=== PATIENT | female | born 1985 | race Caucasian/White ===

== ENCOUNTER 2018-07-27 00:14 | Emergency (ER) | payer OTHER ==
[2018-07-27 00:42] LABS: ADD MAN DIFF? NO
[2018-07-27] MEDS: predniSONE 20 MG TAB PO (00:42)
[2018-07-27 00:44] LABS: WHITE BLOOD COUNT 13.2 10^3/ul (4.8-10.8)
[2018-07-27 00:44] LABS: BASOPHIL # 0.1 10^3/ul (0.0-0.1); BASOPHILS % 0.5 % (0.0-2.0); EOSINOPHILS # 0.4 10^3/ul (0.0-0.5); EOSINOPHILS % 2.9 % (0.0-7.0); HEMATOCRIT 41.5 % (37.0-47.0); HEMOGLOBIN 13.7 g/dl (12.0-16.0); LYMPHOCYTES # 2.7 10^3/ul (0.8-2.9); LYMPHOCYTES % 20.8 % (15.0-51.0); MEAN CORPUSCULAR HEMOGLOBIN 29.1 pg (29.0-33.0); MEAN CORPUSCULAR VOLUME 88.1 fl (82.0-101.0); MEAN PLATELET VOLUME 9.6 fl (7.4-10.4); MONOCYTE # 0.8 10^3/ul (0.3-0.9); MONOCYTES % 6.3 % (0.0-11.0); NEUTROPHIL # 9.1 10^3/ul (1.6-7.5); PLATELET COUNT 312 10^3/UL (140-415); RED BLOOD COUNT 4.71 10^6/ul (4.20-5.40); RED CELL DISTRIBUTION WIDTH 13.1 % (11.5-14.5)
[2018-07-27] MEDS: HYDROCODONE/APAP (5/325) TAB PO (00:53)
[2018-07-27 01:01] LABS: ANION GAP 16 (8-16); BLOOD UREA NITROGEN 10 mg/dl (7-20); CALCIUM 9.4 mg/dl (8.4-10.2); CARBON DIOXIDE 27 mmol/L (21-31); CHLORIDE 99 mmol/L (97-110); CREATININE 0.65 mg/dl (0.44-1.00); GLUCOSE 263 mg/dl (70-220); POTASSIUM 4.1 mmol/L (3.5-5.1); SODIUM 138 mmol/L (135-144)
[2018-07-27] MEDS: IPRATROPIUM (NEB) 0.5 MG/2.5 ML AMP HHN (01:04)
[2018-07-27] MEDS: ALBUTEROL 0.083% (NEB) 2.5 MG/3 ML AMP HHN (01:04)
[2018-07-27 01:12] LABS: B-TYPE NATRIURETIC PEPTIDE 25 PG/ML (0-125); TROPONIN-I < 0.012 ng/ml (0.000-0.120)
[2018-07-27] MEDS: SOD CHLORIDE 0.9% 1,000 ML IV (01:15)
[2018-07-27 01:17] LABS: ALANINE AMINOTRANSFERASE 18 IU/L (13-69); ALBUMIN 3.3 g/dl (3.3-4.9); ALKALINE PHOSPHATASE 115 IU/L (42-121); ASPARTATE AMINO TRANSFERASE 12 IU/L (15-46); LIPASE 164 U/L (23-300); TOTAL PROTEIN 6.9 g/dl (6.1-8.1)
[2018-07-27 02:39] LABS: URINE BLOOD (Dip) POC Negative (NEGATIVE); URINE KETONES (Dip) POC Trace (NEGATIVE); URINE LEUKOCYTE EST (Dip) POC Trace (NEGATIVE); URINE NITRITE (Dip) POC Negative (NEGATIVE); URINE TOTAL PROTEIN POC Trace (NEGATIVE)
[2018-07-27] MEDS: KETOROLAC 30 MG INJ IV (03:17)
== END 2018-07-27 04:35 | disposition home or self-care (01) ==
LOC: E/R 00:14
DX: J45.901 Unspecified asthma with (acute) exacerbation (principal); R10.9 Unspecified abdominal pain
CPT/HCPCS: 36415; 71045; 74019; 80048; 80076; 81003; 81025; 82962; 83690; 83880; 84484; 85025; 93005; 94644; 96374; 99285-25

== ENCOUNTER 2019-04-15 13:00 | Emergency (ER) | payer OTHER | END 2019-04-16 12:53 | disposition home or self-care (01) | LOC: E/R 04-16 12:53 | DX: L50.9 Urticaria, unspecified (principal); I10 Essential (primary) hypertension; J45.909 Unspecified asthma, uncomplicated; E11.9 Type 2 diabetes mellitus without complications | CPT/HCPCS: 99283; Z7502 ==

== ENCOUNTER 2019-05-11 13:29 | Emergency (ER) | payer OTHER ==
[2019-05-11 14:06] LABS: URINE BLOOD (Dip) POC Negative (NEGATIVE); URINE GLUCOSE (Dip) POC Negative (NEGATIVE); URINE KETONES (Dip) POC Negative (NEGATIVE); URINE LEUKOCYTE EST (Dip) POC 1+ (NEGATIVE); URINE NITRITE (Dip) POC Negative (NEGATIVE); URINE TOTAL PROTEIN POC Negative (NEGATIVE)
[2019-05-11] MEDS: AZITHROMYCIN 500 MG TAB PO (14:07)
[2019-05-11] MEDS: CEFTRIAXONE 250 MG INJ IM (14:07)
[2019-05-11] MEDS: LIDOCAINE 1% (MDV) 20 ML INJ SC (14:11)
[2019-05-11 14:43] LABS: ADD UMIC YES; UR ASCORBIC ACID NEGATIVE (NEGATIVE); UR BACTERIA FEW /HPF (NONE SEEN); UR BILIRUBIN (Dip) NEGATIVE (NEGATIVE); UR BLOOD (Dip) NEGATIVE (NEGATIVE); UR CLARITY CLOUDY (CLEAR); UR COLOR YELLOW (YELLOW); UR GLUCOSE (Dip) NEGATIVE (NEGATIVE); UR KETONES (Dip) NEGATIVE (NEGATIVE); UR LEUKOCYTE ESTERASE (Dip) 2+ Leu/ul (NEGATIVE); UR MUCUS FEW /HPF (NONE SEEN); UR NITRITE (Dip) NEGATIVE (NEGATIVE); UR RBC 3 /HPF (0-5); UR SPECIFIC GRAVITY (Dip) 1.019 (1.003-1.030); UR SQUAMOUS EPITHELIAL CELL MANY /HPF (FEW); UR TOTAL PROTEIN (Dip) NEGATIVE (NEGATIVE); UR UROBILINOGEN (Dip) NEGATIVE (NEGATIVE); UR WBC 6 /HPF (0-5)
== END 2019-05-11 14:52 | disposition home or self-care (01) ==
LOC: FTE 14:52
DX: N89.8 Other specified noninflammatory disorders of vagina (principal); I10 Essential (primary) hypertension; E11.9 Type 2 diabetes mellitus without complications; J45.909 Unspecified asthma, uncomplicated; Z11.3 Encounter for screening for infections with a predominantly sexual mode of transmission
CPT/HCPCS: 81001; 81003; 81025; 87210; 87591; 96372; 99284-25

== ENCOUNTER 2019-08-09 23:59 | Emergency (ER) | payer SELFPAY, OTHER | END 2019-08-10 03:25 | disposition left against medical advice (07) | LOC: E/R 23:59 | DX: Z53.21 Procedure and treatment not carried out due to patient leaving prior to being seen by health care provider (principal) | CPT/HCPCS: 82962 ==